=== PATIENT | male | born 1965 | race Hispanic/Latino ===

== ENCOUNTER 2018-10-17 02:30 | Observation (INO) | payer MEDICARE, SELFPAY ==
[2018-10-17 02:31] VITALS: BMI 30.4
--- NOTE | 2018-10-17 02:52 | ED PDOC ---
Arrival/HPI - General Chief Complaint: GI Problem Time Seen by Provider: 10/17/18 02:31 Historian: Patient, Spouse - History of Present Illness Narrative History of Present Illness (Text): 10/17/18 02:45 Pt is a 53 yo male with a PMH of DM, HTN, HLD, GERD who presents to the ED complaining of nausea and vomiting. Pt states he woke up at 1:15am and felt nausea and dizzy/room was spinning. Pt reports 5 episodes of NBNB vomiting. 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 Pt denies sick contacts, missing any medication doses, or diarrhea. Time/Duration: 1-3 hours Symptom Course: Worsening Quality: Aching Severity Level: 5 Activities at Onset: Rest Context: Sitting Past Medical History - Infectious Disease Hx of Infectious Diseases: None - Cardiac Hx Hypertension: Yes - Pulmonary Hx Respiratory Disorders: No - Neurological Hx Neurological Disorder: No - Endocrine/Metabolic Hx Diabetes Mellitus Type 2: Yes - Hematological/Oncological Hx Blood Disorders: No - Integumentary Hx Dermatological Disorder: No - Musculoskeletal/Rheumatological Hx Musculoskeletal Disorders: No - Gastrointestinal Hx Gastrointestinal Disorders: No - Genitourinary/Gynecological Hx Genitourinary Disorders: No - Psychiatric Hx Depression: No Hx Emotional Abuse: No Hx Physical Abuse: No Hx Substance Use: No - Anesthesia Hx Anesthesia: No - Suicidal Assessment Feels Threatened In Home Enviroment: No Family/Social History Family/Social History: Diabetes Smoking Status: Never Smoked Hx Alcohol Use: No Hx Substance Use: No Allergies/Home Meds Allergies/Adverse Reactions: Allergies No Known Allergies Allergy (Verified 10/17/18 02:30) Home Medications: Home Meds Medication Instructions Recorded Confirmed Aspirin [Lo-Dose Aspirin EC] 1 tab PO DAILY 10/17/18 10/17/18 Empagliflozin [Jardiance] 10 mg PO DAILY 10/17/18 10/17/18 Glipizide [Glucotrol] 10 mg PO DAILY 10/17/18 10/17/18 Losartan Potassium 50 mg PO DAILY 10/17/18 10/17/18 Lovastatin 40 mg PO DAILY 10/17/18 10/17/18 MetFORMIN [glucoPHAGE] 1,000 mg PO BID 10/17/18 10/17/18 Review of Systems - Review of Systems Constitutional: Night Sweats Eyes: Vision Changes ENT: Normal Respiratory: Normal Cardiovascular: Normal Gastrointestinal: Abdominal Pain, Nausea, Vomiting. absent: Diarrhea Musculoskeletal: Normal Skin: Normal Neurological: Dizziness. absent: Focal Weakness, Gait Changes, Seizure Endocrine: Diaphoresis Hemo/Lymphatic: Normal Psychiatric: Normal Physical Exam Vital Signs Reviewed: Yes Vital Signs Temp Pulse Resp BP Pulse Ox 10/17/18 02:36 97.7 F 77 18 140/95 H 99 Temperature: Afebrile Blood Pressure: Normal Pulse: Regular Respiratory Rate: Normal Appearance: Positive for: Well-Appearing Mental Status: Positive for: Alert and Oriented X 3 Finger Stick Blood Glucose: 320 - Systems Exam Head: Present: Atraumatic, Normocephalic Pupils: Present: PERRL, Other (lateral nystagmus) Extroacular Muscles: Present: EOMI Conjunctiva: Present: Normal Mouth: Present: Moist Mucous Membranes Pharnyx: Present: Normal Respiratory/Chest: Present: Clear to Auscultation, Good Air Exchange. No: Respiratory Distress, Accessory Muscle Use Cardiovascular: Present: Regular Rate and Rhythm, Normal S1, S2 Abdomen: No: Tenderness Upper Extremity: Present: Normal Inspection Lower Extremity: Present: Normal Inspection Neurological: Present: GCS=15, CN II-XII Intact Skin: Present: Warm, Dry, Rashes Psychiatric: Present: Alert, Oriented x 3 Medical Decision Making ED Course and Treatment: 10/17/18 03:05 vertigo CBC CMP finger stick 380, give 6 units regular insulin IV, recheck blood sugar in 1 hour EKG HR81, RRR, no signs of ST or T wave abnormalities mariangel michael [id number] 10/17/18 04:19 BS196 10/17/18 04:45 CT head spoke with Dr Conner, accepts pt to his service Pt seen, examined, assessment and plan discussed with Dr Twan Aburto PGY1 Disposition/Present on Arrival - Present on Arrival Any Indicators Present on Arrival: No History of DVT/PE: No History of Uncontrolled Diabetes: No Urinary Catheter: No History of Decub. Ulcer: No History Surgical Site Infection Following: None - Disposition Have Diagnosis and Disposition been Completed?: Yes Diagnosis: Vertigo Disposition: HOSPITALIZED Disposition Time: 04:47 Patient Plan: Admission Condition: FAIR Forms: [employer] (B[place]udian)
[2018-10-17] MEDS ORDERED: Insulin Regular 1 UNITS/0.01 ML ML IV STA (02:56)
[2018-10-17] MEDS ORDERED: Sodium Chloride 0.9% 1,000 ML IV SCH (03:00)
[2018-10-17 03:20] LABS: BASO # 0.01 K/mm3 (0.0-2.0); BASO % 0.2 % (0.0-3.0); EOS # 0.1 (0.0-0.7); EOS % 1.6 % (1.5-5.0); HEMOGLOBIN 14.9 g/dL (14.0-18.0); LYMPH # 2.4 (1.2-3.4); MEAN CELL VOLUME 85.4 fl (80.0-105.0); MEAN CORPUSCULAR HEMOGLOBIN 28.3 pg (25.0-35.0); MEAN CORPUSCULAR HGB CONC 33.2 g/dl (31.0-37.0); MEAN PLATELET VOLUME 12.7 fl (7.0-11.0); MONO # 0.3 (0.1-0.6); MONO % 4.8 % (1.0-6.0); RBC 5.26 10^6/uL (3.5-6.1); RED CELL DISTRIBUTION WIDTH 13.2 % (11.5-14.5); WHITE BLOOD COUNT 6.4 10^3/uL (4.5-11.0)
[2018-10-17 03:35] LABS: ALB/GLOB RATIO 1.6 (1.1-1.8); ALBUMIN 4.6 g/dL (3.0-4.8); ALT/SGPT 20 U/L (7-56); AST/SGOT 23 U/L (17-59); BLOOD UREA NITROGEN 21 mg/dL (7-21); CALCIUM 10.8 mg/dL (8.4-10.5); GFR NON-AFRICAN AMERICAN > 60
[2018-10-17] MEDS ORDERED: Insulin Reg-MEDIUM-Coverage SC SCH ×2 (08:27→11:30)
[2018-10-17] MEDS: Insulin Reg-MEDIUM-Coverage SC SCH ×4 (08:50→22:00)
[2018-10-17 08:52] LABS: EOS % 0.2 % (1.5-5.0); HEMOGLOBIN 14.4 g/dL (14.0-18.0); LYMPH # 0.9 (1.2-3.4); LYMPH % 17.2 % (22.0-35.0); MEAN CELL VOLUME 85.8 fl (80.0-105.0); MEAN CORPUSCULAR HEMOGLOBIN 28.1 pg (25.0-35.0); MEAN CORPUSCULAR HGB CONC 32.7 g/dl (31.0-37.0); MEAN PLATELET VOLUME 12.6 fl (7.0-11.0); MONO # 0.1 (0.1-0.6); MONO % 2.7 % (1.0-6.0); RBC 5.13 10^6/uL (3.5-6.1); RED CELL DISTRIBUTION WIDTH 13.2 % (11.5-14.5); WHITE BLOOD COUNT 5.2 10^3/uL (4.5-11.0)
--- NOTE | 2018-10-17 09:02 | CT ---
Date of service: 10/17/2018 PROCEDURE: CT HEAD WITHOUT CONTRAST. HISTORY: vertigo COMPARISON: None available. TECHNIQUE: Axial computed tomography images were obtained through the head/brain without intravenous contrast. Radiation dose: Total exam DLP = 959.33 mGy-cm. This CT exam was performed using one or more of the following dose reduction techniques: Automated exposure control, adjustment of the mA and/or kV according to patient size, and/or use of iterative reconstruction technique. FINDINGS: HEMORRHAGE: No intracranial hemorrhage. BRAIN: No mass effect or edema. No atrophy or chronic microvascular ischemic changes. VENTRICLES: Unremarkable. No hydrocephalus. CALVARIUM: Unremarkable. PARANASAL SINUSES: Unremarkable as visualized. No significant inflammatory changes. MASTOID AIR CELLS: Unremarkable as visualized. No inflammatory changes. OTHER FINDINGS: 4.6 centimeter left temporal benign simple and complicated arachnoid cyst. 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 IMPRESSION: No acute hemorrhage.
[2018-10-17 09:11] LABS: ALB/GLOB RATIO 1.4 (1.1-1.8); ALBUMIN 4.2 g/dL (3.0-4.8); ALT/SGPT 31 U/L (7-56); AST/SGOT 19 U/L (17-59); BLOOD UREA NITROGEN 21 mg/dL (7-21); CALCIUM 10.3 mg/dL (8.4-10.5); GFR NON-AFRICAN AMERICAN > 60; HDL CHOLESTEROL 49 mg/dL (29-60)
[2018-10-17 09:12] LABS: LDL CHOLESTEROL 93 mg/dL (0-129); TROPONIN I < 0.01 ng/mL
[2018-10-17 09:21] LABS: FREE T4 1.13 ng/dL (0.78-2.19)
--- NOTE | 2018-10-17 12:04 | CP.PCM.HP ---
<Jacob Suggs - Last Filed: 10/17/18 12:12> History of Present Illness - History of Present Illness History of Present Illness: Jacob Suggs D.O. PGY-3, Internal Medicine Resident, Dr. Conner's Service, H&P CC: Dizziness with nausea and vomiting for a few hours 53-year-old male with a past medical history of diabetes and hypertension who presents for complaints of dizziness associated with nausea and vomiting for a few hours. Patient states that he was sleeping and woke up feeling unwell so he went to the kitchen to get some orange juice. States that shortly after drinking the orange juice he had nonbloody nonbilious vomiting about 5 times. Patient states that he threw up everything including his dinner from a few hours previous. States that he did not eat anything out of the ordinary. His significant other ate something similar and did not get sick. Has never had any issues like this before in the past. Denies any sick contacts that he knows of. Denies flights or periods of immobility. Patient took his blood sugar during this episode and it was found to be 485. Patient states that he was going to try to use some insulin that he had been given by his primary medical doctor but he did not have any of the needles. Patient decided to present to the hospital for these complaints. At this time denies any fevers, chills, diarrhea, const ipation, lightheadedness, headache, weakness, hematuria, dysuria or any other worrisome complaints. Patient does not that he has a little bit of discomfort in the abdomen. PMH: As above PSH: Right eye surgery, left knee surgery SH: Denies smoking, social EtOH, denies drug use FH: Noncontributory Meds: Reviewed Allergies: No known allergies Present on Admission - Present on Admission Any Indicators Present on Admission: No Review of Systems - Review of Systems All systems: reviewed and no additional remarkable complaints except (as per HPI) Past Patient History - Infectious Disease Hx of Infectious Diseases: None - Past Social History Smoking Status: Never Smoked - CARDIAC Hx Hypertension: Yes - PULMONARY Hx Respiratory Disorders: No - NEUROLOGICAL Hx Neurological Disorder: No - ENDOCRINE/METABOLIC Hx Diabetes Mellitus Type 2: Yes - HEMATOLOGICAL/ONCOLOGICAL Hx Blood Disorders: No - INTEGUMENTARY Hx Dermatological Problems: No - MUSCULOSKELETAL/RHEUMATOLOGICAL Hx Musculoskeletal Disorders: No - GASTROINTESTINAL Hx Gastrointestinal Disorders: No - GENITOURINARY/GYNECOLOGICAL Hx Genitourinary Disorders: No - PSYCHIATRIC Hx Depression: No Hx Emotional Abuse: No Hx Physical Abuse: No Hx Substance Use: No - SURGICAL HISTORY Hx Surgeries: No - ANESTHESIA Hx Anesthesia: No Meds Allergies/Adverse Reactions: Allergies Allergy/AdvReac Type Severity Reaction Status Date / Time No Known Allergies Allergy Verified 10/17/18 02:30 Physical Exam - Constitutional Appears: Non-toxic, No Acute Distress - Head Exam Head Exam: ATRAUMATIC, NORMOCEPHALIC - Eye Exam Eye Exam: EOMI. absent: Scleral icterus Additional comments: slight right ptosis, chronic per patient s/p surgery for lazy eye - ENT Exam ENT Exam: Mucous Membranes Moist, Normal Oropharynx - Neck Exam Neck exam: Positive for: Normal Inspection - Respiratory Exam Respiratory Exam: Clear to Auscultation Bilateral. absent: Rales, Rhonchi, Wheezes - Cardiovascular Exam Cardiovascular Exam: RRR, +S1, +S2. absent: Gallop, Rubs - GI/Abdominal Exam GI & Abdominal Exam: Normal Bowel Sounds, Soft. absent: Distended, Tenderness (even on deep palpation) - Extremities Exam Extremities exam: Positive for: normal capillary refill, pedal pulses present. Negative for: calf tenderness, pedal edema, tenderness - Neurological Exam Neurological exam: Alert, Oriented x3 Additional comments: REFUSED GLENDY-HALLPIKE TEST, states too dizzy at the moment and on re-examination later in the day - Psychiatric Exam Psychiatric exam: Normal Affect, Normal Mood - Skin Skin Exam: Dry, Warm Results - Vital Signs Recent Vital Signs: Last Vital Signs Temp 97.7 F 10/17/18 02:36 Pulse 67 10/17/18 09:40 Resp 16 10/17/18 05:13 BP 120/71 10/17/18 09:40 Pulse Ox 95 10/17/18 05:13 - Labs Result Diagrams: 10/17/18 08:43 10/17/18 08:43 Labs: Laboratory Results - last 24 hr 10/17/18 10/17/18 10/17/18 02:33 02:38 02:38 WBC 6.4 RBC 5.26 Hgb 14.9 Hct 44.9 MCV 85.4 MCH 28.3 MCHC 33.2 RDW 13.2 Plt Count 149 MPV 12.7 H Neut % (Auto) 55.4 Lymph % (Auto) 38.0 H Pender % (Auto) 4.8 Eos % (Auto) 1.6 Baso % (Auto) 0.2 Lymph # (Auto) 2.4 Pender # (Auto) 0.3 Eos # (Auto) 0.1 Baso # (Auto) 0.01 Absolute Neuts (auto) 3.55 Sodium 141 Potassium 3.7 Chloride 105 Carbon Dioxide 25 Anion Gap 15 BUN 21 Creatinine 0.8 Est GFR ( Amer) > 60 Est GFR (Non-Af Amer) > 60 POC Glucose (mg/dL) 320 H Random Glucose 337 H* Calcium 10.8 H Phosphorus Magnesium Total Bilirubin 0.3 AST 23 ALT 20 Alkaline Phosphatase 146 H Troponin I Total Protein 7.5 Albumin 4.6 Globulin 2.9 Albumin/Globulin Ratio 1.6 Triglycerides Cholesterol LDL Cholesterol Direct HDL Cholesterol Free T4 TSH 3rd Generation 10/17/18 10/17/18 10/17/18 04:18 08:03 08:43 WBC 5.2 RBC 5.13 Hgb 14.4 Hct 44.0 MCV 85.8 MCH 28.1 MCHC 32.7 RDW 13.2 Plt Count 130 MPV 12.6 H Neut % (Auto) 79.9 H Lymph % (Auto) 17.2 L Pender % (Auto) 2.7 Eos % (Auto) 0.2 L Baso % (Auto) 0.0 Lymph # (Auto) 0.9 L Pender # (Auto) 0.1 Eos # (Auto) 0.0 Baso # (Auto) 0.00 Absolute Neuts (auto) 4.13 Sodium Potassium Chloride Carbon Dioxide Anion Gap BUN Creatinine Est GFR ( Amer) Est GFR (Non-Af Amer) POC Glucose (mg/dL) 196 H 221 H Random Glucose Calcium Phosphorus Magnesium Total Bilirubin AST ALT Alkaline Phosphatase Troponin I Total Protein Albumin Globulin Albumin/Globulin Ratio Triglycerides Cholesterol LDL Cholesterol Direct HDL Cholesterol Free T4 TSH 3rd Generation 10/17/18 10/17/18 08:43 08:43 WBC RBC Hgb Hct MCV MCH MCHC RDW Plt Count MPV Neut % (Auto) Lymph % (Auto) Pender % (Auto) Eos % (Auto) Baso % (Auto) Lymph # (Auto) Pender # (Auto) Eos # (Auto) Baso # (Auto) Absolute Neuts (auto) Sodium 142 Potassium 4.5 Chloride 106 Carbon Dioxide 26 Anion Gap 14 BUN 21 Creatinine 0.7 L Est GFR ( Amer) > 60 Est GFR (Non-Af Amer) > 60 POC Glucose (mg/dL) Random Glucose 249 H Calcium 10.3 Phosphorus 3.3 Magnesium 2.0 Total Bilirubin 0.4 AST 19 ALT 31 Alkaline Phosphatase 127 H Troponin I < 0.01 Total Protein 7.1 Albumin 4.2 Globulin 2.9 Albumin/Globulin Ratio 1.4 Triglycerides 61 Cholesterol 152 LDL Cholesterol Direct 93 HDL Cholesterol 49 Free T4 1.13 TSH 3rd Generation 1.24 Assessment & Plan - Assessment and Plan (Free Text) Assessment: 53-year-old male with a past medical history of diabetes and hypertension who pr esents for complaints of dizziness associated with nausea and vomiting for a few hours. Plan: 1. Dizziness with associated nausea or vomiting 2. Diabetes mellitus 3. Hypertension Etiology of his vertigo is unclear. We will obtain a neurology consult. Will start PRN meclizine. For his nausea he has had improvements with just isopropyl alcohol aromatherapy. Given that he is diabetic and could have an atypical presentation of chest pain we will obtain troponins and obtain a cardio consult. We will continue his home metformin, glipizide, Jardiance. We will also place the patient on a regular insulin sliding scale with Accu-Cheks before meals at bedtime. We will place the patient on a heart healthy moderate consistent carb diet. We will continue his losartan for his hypertension. We will check his hemoglobin A1c for his diabetes to see if he is well controlled on his regimen given the high readings in the 400s. Head CT revealed no acute bleeding but does have an arachnoid cyst in the left temporal region that is likely chronic. We will follow the patient closely. Patient was seen and examined and case was discussed with attending physician. - Date & Time Date: 10/17/18 Time: 07:00 <Devan Conner - Last Filed: 10/17/18 13:01> Results - Vital Signs Recent Vital Signs: Last Vital Signs Temp 97.7 F 10/17/18 02:36 Pulse 67 10/17/18 09:40 Resp 16 10/17/18 05:13 BP 120/71 10/17/18 09:40 Pulse Ox 95 10/17/18 05:13 - Labs Result Diagrams: 10/17/18 08:43 10/17/18 08:43 Labs: Laboratory Results - last 24 hr 10/17/18 10/17/18 10/17/18 02:33 02:38 02:38 WBC 6.4 RBC 5.26 Hgb 14.9 Hct 44.9 MCV 85.4 MCH 28.3 MCHC 33.2 RDW 13.2 Plt Count 149 MPV 12.7 H Neut % (Auto) 55.4 Lymph % (Auto) 38.0 H Pender % (Auto) 4.8 Eos % (Auto) 1.6 Baso % (Auto) 0.2 Lymph # (Auto) 2.4 Pender # (Auto) 0.3 Eos # (Auto) 0.1 Baso # (Auto) 0.01 Absolute Neuts (auto) 3.55 Sodium 141 Potassium 3.7 Chloride 105 Carbon Dioxide 25 Anion Gap 15 BUN 21 Creatinine 0.8 Est GFR ( Amer) > 60 Est GFR (Non-Af Amer) > 60 POC Glucose (mg/dL) 320 H Random Glucose 337 H* Calcium 10.8 H Phosphorus Magnesium Total Bilirubin 0.3 AST 23 ALT 20 Alkaline Phosphatase 146 H Troponin I Total Protein 7.5 Albumin 4.6 Globulin 2.9 Albumin/Globulin Ratio 1.6 Triglycerides Cholesterol LDL Cholesterol Direct HDL Cholesterol Amylase Lipase Free T4 TSH 3rd Generation 10/17/18 10/17/18 10/17/18 04:18 08:03 08:43 WBC 5.2 RBC 5.13 Hgb 14.4 Hct 44.0 MCV 85.8 MCH 28.1 MCHC 32.7 RDW 13.2 Plt Count 130 MPV 12.6 H Neut % (Auto) 79.9 H Lymph % (Auto) 17.2 L Pender % (Auto) 2.7 Eos % (Auto) 0.2 L Baso % (Auto) 0.0 Lymph # (Auto) 0.9 L Pender # (Auto) 0.1 Eos # (Auto) 0.0 Baso # (Auto) 0.00 Absolute Neuts (auto) 4.13 Sodium Potassium Chloride Carbon Dioxide Anion Gap BUN Creatinine Est GFR ( Amer) Est GFR (Non-Af Amer) POC Glucose (mg/dL) 196 H 221 H Random Glucose Calcium Phosphorus Magnesium Total Bilirubin AST ALT Alkaline Phosphatase Troponin I Total Protein Albumin Globulin Albumin/Globulin Ratio Triglycerides Cholesterol LDL Cholesterol Direct HDL Cholesterol Amylase Lipase Free T4 TSH 3rd Generation 10/17/18 10/17/18 10/17/18 08:43 08:43 12:19 WBC RBC Hgb Hct MCV MCH MCHC RDW Plt Count MPV Neut % (Auto) Lymph % (Auto) Pender % (Auto) Eos % (Auto) Baso % (Auto) Lymph # (Auto) Pender # (Auto) Eos # (Auto) Baso # (Auto) Absolute Neuts (auto) Sodium 142 Potassium 4.5 Chloride 106 Carbon Dioxide 26 Anion Gap 14 BUN 21 Creatinine 0.7 L Est GFR ( Amer) > 60 Est GFR (Non-Af Amer) > 60 POC Glucose (mg/dL) 181 H Random Glucose 249 H Calcium 10.3 Phosphorus 3.3 Magnesium 2.0 Total Bilirubin 0.4 AST 19 ALT 31 Alkaline Phosphatase 127 H Troponin I < 0.01 Total Protein 7.1 Albumin 4.2 Globulin 2.9 Albumin/Globulin Ratio 1.4 Triglycerides 61 Cholesterol 152 LDL Cholesterol Direct 93 HDL Cholesterol 49 Amylase Lipase Free T4 1.13 TSH 3rd Generation 1.24 10/17/18 12:43 WBC RBC Hgb Hct MCV MCH MCHC RDW Plt Count MPV Neut % (Auto) Lymph % (Auto) Pender % (Auto) Eos % (Auto) Baso % (Auto) Lymph # (Auto) Pender # (Auto) Eos # (Auto) Baso # (Auto) Absolute Neuts (auto) Sodium Potassium Chloride Carbon Dioxide Anion Gap BUN Creatinine Est GFR ( Amer) Est GFR (Non-Af Amer) POC Glucose (mg/dL) Random Glucose Calcium Phosphorus Magnesium Total Bilirubin AST ALT Alkaline Phosphatase Troponin I Total Protein Albumin Globulin Albumin/Globulin Ratio Triglycerides Cholesterol LDL Cholesterol Direct HDL Cholesterol Amylase 114 Lipase 74 Free T4 TSH 3rd Generation Assessment & Plan - Assessment and Plan (Free Text) Plan: Pt seen and examined by me. I have reviewed the note of the biomedical engineering technician and I agree with it. I have discussed the assessment and plan with the resident. I have reviewed the medications and the last labs.
[2018-10-17 12:50] LABS: AMYLASE 114 U/L (35-125); LIPASE 74 U/L (23-300)
--- NOTE | 2018-10-17 15:08 | HP ---
DATE OF EXAM: 10/17/2018 HISTORY OF PRESENT ILLNESS: The patient was seen and examined. I do agree with the note of the medical accounts receivable specialist. I was involved in the plan of care. The patient came in to the hospital with dizziness, nausea and vomiting. He does have a history of diabetes and hypertension, his sugars have been uncontrolled. He is drinking orange juice to help with his symptoms, but without relief. The patient says that he never had these symptoms before, this is the first time he started having these symptoms and this is mostly yesterday. He was found to have a sugar that was significantly elevated in the 400s. He was not able to use the insulin, because he ran out of the needles. The patient says that he is feeling better, he does not have the nausea or vomiting. His dizziness is better, but he did try to go to the bathroom earlier and did have recurrence of his symptoms. The patient is going to be seen by Neurology. I will place the patient on meclizine as needed. He also had a CT of the chest done CT of the head that showed no acute abnormalities. There was a 4.6 cm left temporal benign the arachnoid cyst. There was mild chronic hypoplasia of the adjacent left temporal lobe. I did speak to the patient's at the bedside, who was able to tell me the patient's history and also I gave her update on the patient's plan of care. The patient is currently on aspirin daily, he is on metformin for his diabetes as well as Glucotrol, he will continue on that. The patient had troponin that was negative on admission and amylase and lipase were negative. Devan Conner MD
--- NOTE | 2018-10-17 16:54 | CON ---
DATE: 10/17/2018 NEUROLOGY CONSULT CHIEF COMPLAINT: Dizziness and nausea. HISTORY OF PRESENT ILLNESS: This is a 53-year-old man with history of type 2 diabetes mellitus, hypertension, who presented with complaints of dizziness and nausea over the past few hours. The patient states that he was sleeping, he woke up and felt unwell, and he went to kitchen to get some orange juice, he felt lightheaded and had spinning sensation of the room as well as had nonbilious vomiting x5 and took his blood sugar and found to have a blood sugar of 485. Currently, he came in for further evaluation. CAT scan of the head showed no acute intracranial abnormality. He had elevated blood sugars and has a hemoglobin A1c of 12.4, which shows poorly controlled diabetes. His initial blood sugar when he came was 337, elevated. Currently, he mentioned that the dizziness is much better in terms of spinning sensation of the room. No focal weakness seen on extremities. He had some mild neuropathy seen in neuro exam. PAST MEDICAL HISTORY: As above. SOCIAL HISTORY: No illicit drug use, smoking or EtOH abuse. REVIEW OF SYSTEMS: A 14-point review of systems is as per HPI. ALLERGIES: NO KNOWN DRUG ALLERGIES. MEDICATIONS: Reviewed by nurses' reconciliation sheet. FAMILY HISTORY: Noncontributory. LABORATORY DATA: Sodium is 142, potassium is 4.5, chloride 106, carbon dioxide 26, BUN of 21, creatinine 0.7, random glucose 249, and A1c is 12.4. PHYSICAL EXAMINATION: GENERAL: The patient is sitting up in bed, in no acute distress. VITAL SIGNS: Temperature is 98.2, pulse rate is 73, blood pressure 147/90, respiratory rate 19, oxygen saturation 95% on room air. HEENT: Atraumatic, normocephalic. PERRLA. Extraocular muscles intact. NECK: Supple. No JVD. No adenopathy noted. LUNGS: Clear to auscultation. No adventitious sounds. HEART: S1 and S2, normal rate and rhythm. No murmurs, rubs or gallops. ABDOMEN: Soft, nontender and nondistended. Bowel sounds present. EXTREMITIES: No clubbing. No cyanosis. Peripheral pulses are 2+ felt bilaterally. NEUROLOGIC: The patient is alert and oriented to person, place, month and year. Speech is fluent without any errors. Cranial nerves II through XII are intact. Motor: Moves all extremities equally. No pronator drift seen. Sensory: Decreased light touch and pinprick up to the calves bilaterally. Decreased vibration at the toes. DTRs are 2+ throughout and toes are downgoing bilaterally. Coordination: [id number] is intact. No dysmetria noted. Gait is deferred for now. IMPRESSION: This is a 53-year-old man with history of type 2 diabetes mellitus, hypertension, who presented with complaints of dizziness, spinning sensation of the room, associated with nausea and vomiting, which is likely secondary to positional vertigo, superimposed underlying hyperglycemia and with uncontrolled diabetes given that his A1c is 12.4. RECOMMENDATIONS: At this time, we would recommend: 1. Keep blood sugars in the 140-180 and diabetic diet and education needs to be given. 2. Aspirin 81 mg for stroke prevention in addition to Lipitor 40 mg p.o. daily for dyslipidemia. 3. Meclizine 25 mg p.o. every 6 hours for underlying vertigo. 4. Outpatient vestibular therapy for vertigo. 5. MRI of the brain to assess for any structural abnormalities causing acute symptoms and continue with current and present medical management. Thank you for this consult. Dong Christianson MD
--- NOTE | 2018-10-17 17:38 | MRI ---
Date of service: 2018-10-17 15:27:38 PROCEDURE: MRI BRAIN WITHOUT CONTRAST HISTORY: Vertigo. COMPARISON: Comparison made with CT scan vein earlier same day TECHNIQUE: Multiplanar, multisequence MR images of the brain were obtained without intravenous contrast enhancement. FINDINGS: HEMORRHAGE: No acute parenchymal, subarachnoid or extra-axial hemorrhage. No evidence hemosiderin deposition identified on gradient echo weighted sequence. DWI: No evidence of an acute or early subacute infarction seen on diffusion imaging.. BRAIN PARENCHYMA: Redemonstrated is a relatively large arachnoid cyst left middle cranial fossa. The cyst results in minor compressive effects on the anterior aspect of the left temporal lobe which is displaced posteriorly. Note however that the there may also be a component of hypoplasia left temporal lobe Mild generalized volume loss VENTRICLES: No obstructive hydrocephalus. CRANIUM: Unremarkable. ORBITS: Orbits and contents grossly unremarkable. PARANASAL SINUSES/MASTOIDS: Clear VASCULAR SYSTEM: Visualized major vascular flow voids at skull base patent. OTHER FINDINGS: None. IMPRESSION: Redemonstrated is a relatively large left middle cranial fossa arachnoid cyst.. The cyst does result in minor compressive effects on the anterior margin of the left temporal lobe which is slightly displaced posteriorly however note that the possibility of an element of mild hypoplasia left temporal lobe may be present as well. No evidence of acute intracranial hemorrhage or infarction. Mild generalized volume loss.
[2018-10-17 17:41] VITALS: RESP 18
--- NOTE | 2018-10-17 17:59 | CP.PCM.PCO ---
Physician Communication Note - Physician Communication Note Physician Communication Note: mri brain reveiwed, no acute abnormalities. c/w vestibular therapy outpt.
--- NOTE | 2018-10-17 18:22 | CARD ---
APPROVED REPORT Date of service: 10/17/2018 EKG Measurement Heart [id number] MD [id number] <Conclusion> Normal sinus rhythm Septal infarct, age undetermined Abnormal ECG
--- NOTE | 2018-10-17 21:17 | CON ---
DATE: 10/17/2018 CONSULT SERVICE: Cardiology. REASON FOR CONSULTATION: Cardiac evaluation, admitted with dizziness. BRIEF CLINICAL HISTORY: This is a 53-year-old male with past medical history significant for diabetes, hypertension, hyperlipidemia, morbid obesity used to be 480 pounds, cut down to weight 280 over the period of 3 years, who admitted here with dizziness. The patient states that he got up, took it orange juice, and feel everything is spinning around. Denies any chest pain. Denies any shortness of breath. Denies any palpitations. PAST MEDICAL HISTORY: Significant for diabetes, hypertension, hyperlipidemia, morbid obesity 480 pounds used to be 3 years ago, he cut down the weight taking small portion of food to 280 pounds, now is around 285. CURRENT MEDICATIONS: The patient is taking at home losartan 50 mg, lovastatin 40 mg, glipizide 10 mg, aspirin, metformin 1 g twice a day, and Jardiance 10 mg daily. REVIEW OF SYSTEMS: As per HPI. ALLERGIES: NO KNOWN DRUG ALLERGIES. PAST SURGICAL HISTORY: Significant for left knee surgery and right eye surgery. SOCIAL HISTORY: Denies any smoking. Denies any history of alcohol abuse. PHYSICAL EXAMINATION: GENERAL: Height of the patient 6 feet 4 inches, weight of the patient 285 pounds, and body mass index 34 kg/m2. VITAL SIGNS: Temperature afebrile, heart rate , and blood pressure 132/80. HEENT: PERRLA. Extraocular muscles intact. NECK: Supple. No carotid bruits. No thyromegaly. CHEST: Clear to auscultation. HEART: S1 and S2 regular. ABDOMEN: Soft. EXTREMITIES: Clubbing and cyanosis negative. LABORATORY DATA: Blood workup as follows: WBC 5.8, hemoglobin , hematocrit 44, and platelet count 130. Chemistry shows sodium 140, potassium 4.5, chloride 106, CO2 of 26, anion gap of 14, BUN 21, and creatinine 0.4. EKG showed normal sinus, poor R-wave progression, and no acute ST-T changes noted. IMPRESSION: A 53-year-old male with past medical history significant for morbid obesity, recently reduced weight from 480 to 250 over the period of 3 years, admitted with dizziness. History of diabetes, hypertension, hyperlipidemia, multiple risk factors of coronary artery disease, but no evidence of ischemia noted. RECOMMENDATIONS: Echo to assess LV function. We will get TSH, lipid profile, and hemoglobin A1c. Further recommendation depending upon the hospital course. Continue neuro workup. We will follow with you. Thank you Dr. Conner for providing us the opportunity in taking care of the patient, Wilfrid Chavez. Ross Kunz MD
[2018-10-18 05:48] VITALS: BP 122/67; PULSE 62; TEMP 97.6; O2SAT 97
[2018-10-18] MEDS: Insulin Reg-MEDIUM-Coverage SC SCH (07:58)
--- NOTE | 2018-10-18 08:50 | CP.PCM.PN ---
Subjective - Date & Time of Evaluation Date of Evaluation: 10/18/18 Time of Evaluation: 06:48 - Subjective Subjective: Awake, no distress Reason for consultation and follow up: Cardiac evaluation of dizziness, history of diabetes and hypertension Seen and examined by me and Dr. Kunz Objective - Vital Signs/Intake and Output Vital Signs (last 24 hours): Temp Pulse Resp BP Pulse Ox 97.6 F 62 18 122/67 97 10/18/18 05:30 10/18/18 05:30 10/18/18 05:30 10/18/18 05:30 10/18/18 05:30 Intake and Output: 10/18/18 10/18/18 06:59 18:59 Intake Total 240 Balance 240 - Medications Medications: Current Medications Aspirin (Ecotrin) 81 mg PO DAILY [facility] Last Admin: 10/17/18 09:40 Dose: 81 mg Glipizide (Glucotrol) 10 mg PO DAILY [facility] Last Admin: 10/17/18 09:40 Dose: 10 mg Insulin Human Regular (Humulin R Med) 0 units SC [facility]; Protocol Last Admin: 10/18/18 07:58 Dose: 1 u Losartan Potassium (Cozaar) 50 mg PO DAILY [facility] Last Admin: 10/17/18 09:40 Dose: 50 mg Meclizine HCl (Antivert) 25 mg PO Q6 PRN PRN Reason: Dizziness Metformin HCl (Glucophage) 1,000 mg PO BID [facility] Last Admin: 10/17/18 17:38 Dose: 1,000 mg Non-Formulary Medication (Empagliflozin [Jardiance]) 10 mg PO DAILY [facility] Last Admin: 10/17/18 09:41 Dose: Not Given - Labs Labs: 10/17/18 08:43 10/17/18 08:43 - Constitutional Appears: Non-toxic, No Acute Distress - Head Exam Head Exam: NORMAL INSPECTION, NORMOCEPHALIC - Eye Exam Eye Exam: Normal appearance Pupil Exam: NORMAL ACCOMODATION - ENT Exam ENT Exam: Mucous Membranes Moist, Normal Exam - Neck Exam Neck Exam: Full ROM, Normal Inspection - Respiratory Exam Respiratory Exam: Decreased Breath Sounds, Clear to Ausculation Bilateral, NORMAL BREATHING PATTERN - Cardiovascular Exam Cardiovascular Exam: REGULAR RHYTHM, +S1, +S2 - GI/Abdominal Exam GI & Abdominal Exam: Soft, Normal Bowel Sounds - Extremities Exam Extremities Exam: Full ROM, Normal Capillary Refill - Neurological Exam Neurological Exam: Alert, Awake, Oriented x3 - Psychiatric Exam Psychiatric exam: Normal Affect, Normal Mood - Skin Skin Exam: Dry, Normal Color, Warm Assessment and Plan - Assessment and Plan (Free Text) Assessment: A 53 year old obese male who came in to the ER due to dizziness associated with nausea and vomiting. He checked glucose was elevated 485 but unable to give self insulin. History of hypertension and diabetes, left eye surgery,left knee surgery. Troponin negative. EKG showed NSR, no ischemia. No previous cardiac work up done at [facility]. Echo done to evaluate LV function, results pending, will follow up. Control glucose. Due to risk, will schedule stress test as out pat ient. No evidence of acute myocardial infarction.Ruled out acute coronary syndrome. Uncontrolled diabetes. Will discontinue telemetry. Neuro on consult. Plan: No distress Heart rate stable Blood pressure stable Will follow up echo results Out patient stress test On ASA 81 mg daily,Cozaar 50 mg daily Continue current treatment Continue current medications Lifestyle modification Weight reduction Diabetes education Discontinue telemetry Will follow up Plan and treatment discussed with Dr. Kunz
--- NOTE | 2018-10-18 10:51 | CP.PCM.DIS ---
<SuggsJacob shaikh - Last Filed: 10/18/18 10:42> Provider - Provider Date of Admission: 10/17/18 04:56 Attending physician: Devan Conner MD Primary care physician: Crispin Shultz APN Consults: 10/17/18 08:33 Consult [Physician Consult] Routine Comment: Consulting Provider: Ross Kunz Consulting Physician: Ross Kunz Reason for Consult: dizziness 10/17/18 10:29 Neurology Consult Routine Comment: Consulting Provider: Dong Christianson Consulting Physician: Dong Christianson Reason for Consult: Vertigo Time Spent in preparation of Discharge (in minutes): 45 Diagnosis - Discharge Diagnosis (1) Uncontrolled diabetes mellitus Status: Acute (2) Vertigo Status: Acute Hospital Course - Lab Results Lab Results: Most Recent Lab Values WBC 5.2 10^3/uL (4.5-11.0) 10/17/18 08:43 RBC 5.13 10^6/uL (3.5-6.1) 10/17/18 08:43 Hgb 14.4 g/dL (14.0-18.0) 10/17/18 08:43 Hct 44.0 % (42.0-52.0) 10/17/18 08:43 MCV 85.8 fl (80.0-105.0) 10/17/18 08:43 MCH 28.1 pg (25.0-35.0) 10/17/18 08:43 MCHC 32.7 g/dl (31.0-37.0) 10/17/18 08:43 RDW 13.2 % (11.5-14.5) 10/17/18 08:43 Plt Count 130 10^3/uL (120.0-450.0) 10/17/18 08:43 MPV 12.6 fl (7.0-11.0) H 10/17/18 08:43 Neut % (Auto) 79.9 % (50.0-68.0) H 10/17/18 08:43 Lymph % (Auto) 17.2 % (22.0-35.0) L 10/17/18 08:43 [place] % (Auto) 2.7 % (1.0-6.0) 10/17/18 08:43 Eos % (Auto) 0.2 % (1.5-5.0) L 10/17/18 08:43 Baso % (Auto) 0.0 % (0.0-3.0) 10/17/18 08:43 Lymph # (Auto) 0.9 (1.2-3.4) L 10/17/18 08:43 [place] # (Auto) 0.1 (0.1-0.6) 10/17/18 08:43 Eos # (Auto) 0.0 (0.0-0.7) 10/17/18 08:43 Baso # (Auto) 0.00 K/mm3 (0.0-2.0) 10/17/18 08:43 Absolute Neuts (auto) 4.13 (1.4-6.5) 10/17/18 08:43 Sodium 142 mmol/L (132-148) 10/17/18 08:43 Potassium 4.5 mmol/L (3.6-5.0) 10/17/18 08:43 Chloride 106 mmol/L (98-107) 10/17/18 08:43 Carbon Dioxide 26 mmol/L (21-33) 10/17/18 08:43 Anion Gap 14 (10-20) 10/17/18 08:43 BUN 21 mg/dL (7-21) 10/17/18 08:43 Creatinine 0.7 mg/dl (0.8-1.5) L 10/17/18 08:43 Est GFR ( Amer) > 60 10/17/18 08:43 Est GFR (Non-Af Amer) > 60 10/17/18 08:43 POC Glucose (mg/dL) 159 mg/dL (65-110) H 10/18/18 07:06 Random Glucose 249 mg/dL (70-110) H 10/17/18 08:43 Hemoglobin A1c 12.4 % (4.2-6.5) H D 10/17/18 08:43 Calcium 10.3 mg/dL (8.4-10.5) 10/17/18 08:43 Phosphorus 3.3 mg/dL (2.5-4.5) 10/17/18 08:43 Magnesium 2.0 mg/dL (1.7-2.2) 10/17/18 08:43 Total Bilirubin 0.4 mg/dL (0.2-1.3) 10/17/18 08:43 AST 19 U/L (17-59) 10/17/18 08:43 ALT 31 U/L (7-56) 10/17/18 08:43 Alkaline Phosphatase 127 U/L (38-126) H 10/17/18 08:43 Troponin I < 0.01 ng/mL 10/17/18 08:43 Total Protein 7.1 g/dL (5.8-8.3) 10/17/18 08:43 Albumin 4.2 g/dL (3.0-4.8) 10/17/18 08:43 Globulin 2.9 gm/dL 10/17/18 08:43 Albumin/Globulin Ratio 1.4 (1.1-1.8) 10/17/18 08:43 Triglycerides 61 mg/dL (35-160) 10/17/18 08:43 Cholesterol 152 mg/dL (130-200) 10/17/18 08:43 LDL Cholesterol Direct 93 mg/dL (0-129) 10/17/18 08:43 HDL Cholesterol 49 mg/dL (29-60) 10/17/18 08:43 Amylase 114 U/L (35-125) 10/17/18 12:43 Lipase 74 U/L (23-300) 10/17/18 12:43 Free T4 1.13 ng/dL (0.78-2.19) 10/17/18 08:43 TSH 3rd Generation 1.24 mIU/mL (0.46-4.68) 10/17/18 08:43 - Hospital Course Hospital Course: Jacob Suggs D.O. PGY-3, Internal Medicine Resident, Dr. Conner's Service, Discharge Summary 53-year-old male with a past medical history of diabetes and hypertension who presented for complaints of dizziness associated with nausea and vomiting for a few hours. Patient was evaluated by neurology. Patient had a CT of the head which showed no acute hemorrhage and only a arachnoid cyst which is chronic. Patient was seen and evaluated by neurology who recommended an MRI as suggested that his etiology was likely from blood sugar variations. 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 These findings were discussed with the patient's. Patient's had a lipid panel done which revealed normal cholesterol. Patient also had a hemoglobin A1c drawn which showed an A1c of 12.4%. Blood sugars varied during admission from 143-320 when he but were as high as 337 at admission. Patient was continued on his home medications of aspirin, losartan, metformin, glipizide, and Jardiance. Extensive discussion was had with the patient about the importance of lifestyle modifications and carb intake on his hemoglobin A1c. Patient was also seen and evaluated by cardiology and the recommendations were appreciated. Patient had a thyroid profile performed by cardiology which was shown to be normal. Patient also has an echocardiogram that was performed and is currently pending read. Patient will follow-up with cardiology as. Patient was seen and examined today this morning. Patient received alcohol aromatherapy for his nausea and states that it really helped him. Patient feels absolutely fine now. He understands that this was likely due to acute changes in his blood sugar levels. Patient will follow-up with his primary medical doctor within 1 week. Patient states that he will make lifestyle changes. All aforementioned information and plan was discussed with patient at length and he verbalized both understanding and agreement with the above. Patient was discharged in a stable condition to home. - Date & Time of H&P Date of H&P: 10/18/18 Time of H&P: 07:00 Discharge Exam - Head Exam Head Exam: NORMAL INSPECTION, NORMOCEPHALIC - Eye Exam Eye Exam: EOMI. absent: Scleral icterus Additional comments: slight right ptosis, chronic per patient - ENT Exam ENT Exam: Mucous Membranes Moist, Normal Oropharynx - Neck Exam Neck exam: Positive for: Normal Inspection - Respiratory Exam Respiratory Exam: Clear to Auscultation Bilateral. absent: Rales, Rhonchi, Wheezes - Cardiovascular Exam Cardiovascular Exam: RRR, +S1, +S2. absent: Gallop, Rubs - GI/Abdominal Exam GI & Abdominal Exam: Normal Bowel Sounds, Soft. absent: Distended, Tenderness - Extremities Exam Extremities exam: Positive for: normal capillary refill, pedal pulses present. Negative for: calf tenderness, pedal edema, tenderness - Neurological Exam Neurological exam: Alert, Oriented x3, nonfocal, intact - Psychiatric Exam Psychiatric exam: Normal Affect, Normal Mood - Skin Skin Exam: Dry, Warm Discharge Plan - Follow Up Plan Condition: FAIR Disposition: HOME/ ROUTINE Instructions: Vertigo (a Type of Dizziness) (DC), Diabetes Type 2 (DC), The ABCs of Diabetes, Treatment for Type 2 Diabetes, Sick Day Management for Diabetics, Heart Disease in Diabetics Additional Instructions: 1. Follow up with Dr. Shultz within 1 week. 2. Continue home medications. 3. Make lifestyle modifications as discussed. 4. Maintain hydration. Referrals: Crispin Shultz APN [Primary Care Provider] - <Devan Conner - Last Filed: 10/18/18 16:28> Provider - Provider Date of Admission: 10/17/18 04:56 Attending physician: Devan Conner MD Primary care physician: Crispin Shultz APN Consults: 10/17/18 08:33 Consult [Physician Consult] Routine Comment: Consulting Provider: Ross Kunz Consulting Physician: Ross Kunz Reason for Consult: dizziness 10/17/18 10:29 Neurology Consult Routine Comment: Consulting Provider: Dong Christianson Consulting Physician: Dong Christianson Reason for Consult: Vertigo Hospital Course - Lab Results Lab Results: Most Recent Lab Values WBC 5.2 10^3/uL (4.5-11.0) 10/17/18 08:43 RBC 5.13 10^6/uL (3.5-6.1) 10/17/18 08:43 Hgb 14.4 g/dL (14.0-18.0) 10/17/18 08:43 Hct 44.0 % (42.0-52.0) 10/17/18 08:43 MCV 85.8 fl (80.0-105.0) 10/17/18 08:43 MCH 28.1 pg (25.0-35.0) 10/17/18 08:43 MCHC 32.7 g/dl (31.0-37.0) 10/17/18 08:43 RDW 13.2 % (11.5-14.5) 10/17/18 08:43 Plt Count 130 10^3/uL (120.0-450.0) 10/17/18 08:43 MPV 12.6 fl (7.0-11.0) H 10/17/18 08:43 Neut % (Auto) 79.9 % (50.0-68.0) H 10/17/18 08:43 Lymph % (Auto) 17.2 % (22.0-35.0) L 10/17/18 08:43 [place] % (Auto) 2.7 % (1.0-6.0) 10/17/18 08:43 Eos % (Auto) 0.2 % (1.5-5.0) L 10/17/18 08:43 Baso % (Auto) 0.0 % (0.0-3.0) 10/17/18 08:43 Lymph # (Auto) 0.9 (1.2-3.4) L 10/17/18 08:43 [place] # (Auto) 0.1 (0.1-0.6) 10/17/18 08:43 Eos # (Auto) 0.0 (0.0-0.7) 10/17/18 08:43 Baso # (Auto) 0.00 K/mm3 (0.0-2.0) 10/17/18 08:43 Absolute Neuts (auto) 4.13 (1.4-6.5) 10/17/18 08:43 Sodium 142 mmol/L (132-148) 10/17/18 08:43 Potassium 4.5 mmol/L (3.6-5.0) 10/17/18 08:43 Chloride 106 mmol/L (98-107) 10/17/18 08:43 Carbon Dioxide 26 mmol/L (21-33) 10/17/18 08:43 Anion Gap 14 (10-20) 10/17/18 08:43 BUN 21 mg/dL (7-21) 10/17/18 08:43 Creatinine 0.7 mg/dl (0.8-1.5) L 10/17/18 08:43 Est GFR ( Amer) > 60 10/17/18 08:43 Est GFR (Non-Af Amer) > 60 10/17/18 08:43 POC Glucose (mg/dL) 159 mg/dL (65-110) H 10/18/18 07:06 Random Glucose 249 mg/dL (70-110) H 10/17/18 08:43 Hemoglobin A1c 12.4 % (4.2-6.5) H D 10/17/18 08:43 Calcium 10.3 mg/dL (8.4-10.5) 10/17/18 08:43 Phosphorus 3.3 mg/dL (2.5-4.5) 10/17/18 08:43 Magnesium 2.0 mg/dL (1.7-2.2) 10/17/18 08:43 Total Bilirubin 0.4 mg/dL (0.2-1.3) 10/17/18 08:43 AST 19 U/L (17-59) 10/17/18 08:43 ALT 31 U/L (7-56) 10/17/18 08:43 Alkaline Phosphatase 127 U/L (38-126) H 10/17/18 08:43 Troponin I < 0.01 ng/mL 10/17/18 08:43 Total Protein 7.1 g/dL (5.8-8.3) 10/17/18 08:43 Albumin 4.2 g/dL (3.0-4.8) 10/17/18 08:43 Globulin 2.9 gm/dL 10/17/18 08:43 Albumin/Globulin Ratio 1.4 (1.1-1.8) 10/17/18 08:43 Triglycerides 61 mg/dL (35-160) 10/17/18 08:43 Cholesterol 152 mg/dL (130-200) 10/17/18 08:43 LDL Cholesterol Direct 93 mg/dL (0-129) 10/17/18 08:43 HDL Cholesterol 49 mg/dL (29-60) 10/17/18 08:43 Amylase 114 U/L (35-125) 10/17/18 12:43 Lipase 74 U/L (23-300) 10/17/18 12:43 Free T4 1.13 ng/dL (0.78-2.19) 10/17/18 08:43 TSH 3rd Generation 1.24 mIU/mL (0.46-4.68) 10/17/18 08:43 - Hospital Course Hospital Course: Pt seen and examined by me. I have reviewed the note of the rn medical inpatient services and I agree with it. I have discussed the assessment and plan with the resident. I have reviewed the medications and the last labs.
--- NOTE | 2018-10-18 13:21 | CARD ---
APPROVED REPORT Date of service: 10/17/2018 EXAM: Two-dimensional and M-mode echocardiogram with Doppler and color Doppler. INDICATION Dizziness and Vertigo 2D DIMENSIONS Left Atrium (2D)4.1 (1.6-4.0cm)IVSd1.1 (0.7-1.1cm) LVDd4.2 (3.9-5.9cm)PWd1.1 (0.7-1.1cm) LVDs2.9 (2.5-4.0cm)FS (%) 31.3 % LVEF (%)59.5 (>50%) M-Mode DIMENSIONS Aortic Root3.80 (2.2-3.7cm)Aortic Cusp Exc.2.10 (1.5-2.0cm) Aortic Valve AoV Peak Pfparvrf817.0cm/Elijah Peak GR.7mmHg Mitral Valve MV E Xcfcqlxt86.0cm/sMV A Rftbcyrx03.7cm/sE/A ratio0.8 TDI Lateral E' Peak V9.85cm/sMedial E' Peak V7.70cm/sE/Lateral E'7.6 E/Medial E'9.7 Pulmonary Valve PV Peak Bajspzis70.9cm/sPV Peak Grad.3mmHg Tricuspid Valve TR Peak [id number]/sRAP [id number] Peak Gr.17mmHg [id number] LEFT VENTRICLE The left ventricle is normal size. There is normal left ventricular wall thickness. The left ventricular function is normal.EF-55-60% There is normal LV segmental wall motion. Transmitral Doppler flow pattern is Grade III-reversible restrictive diastolic dysfunction. No left ventricle thrombus noted on this study. There is no ventricular septal defect visualized. There is no left ventricular aneurysm. There is no mass noted in the left ventricle. RIGHT VENTRICLE The right ventricle is normal size. There is normal right ventricular wall thickness. The right ventricular systolic function is normal. ATRIA The left atrium is borderline dilated. The right atrium size is normal. The interatrial septum is intact with no evidence for an atrial septal defect. AORTIC VALVE The aortic valve is thickened but opens well. No aortic regurgitation is present. There is no aortic valvular stenosis. There is no aortic valvular vegetation. MITRAL VALVE The mitral valve is thickened but opens well. Mitral regurgitation is trace. There is no mitral valve stenosis. There is no evidence of mitral valve prolapse. TRICUSPID VALVE The tricuspid valve is normal in structure. There is trace to mild tricuspid regurgitation.RVSP-27 mmof hg. There is no tricuspid valve stenosis. There is no tricuspid valve prolapse or vegetation. PULMONIC VALVE The pulmonary valve is normal in structure. There is trace pulmonic valvular regurgitation. There is no pulmonic valvular stenosis. GREAT VESSELS The aortic root is normal in size. The ascending aorta is normal in size. The pulmonary artery is normal. The IVC is normal in size and collapses >50% with inspiration. PERICARDIAL EFFUSION There is no pleural effusion. There is no pericardial effusion. <Conclusion> The left ventricle is normal size. There is normal left ventricular wall thickness. The left ventricular function is normal.EF-55-60% Mitral regurgitation is trace. There is trace to mild tricuspid regurgitation.RVSP-27 mmof hg. The IVC is normal in size and collapses >50% with inspiration. There is no pericardial effusion. No vegetation or thrombus noted.
--- NOTE | 2018-10-18 21:03 | DS ---
HOSPITAL COURSE: The patient was seen and examined. I do agree with the note of the spanish medical interpreter. I was involved in the plan of care. The patient had uncontrolled diabetes when he was admitted to the hospital and was having dizziness. He was also having nausea and vomiting. The patient had improvement in his symptoms after his IV fluids were given and his sugars were better controlled. He had a CAT scan and MRI that were done that did show arachnoid an cyst, and the patient was seen by Neurology and cleared for discharge. No further management was going to be done. The patient was given a copy of his MRI to take to his primary care doctor. The patient had uncontrolled diabetes and had a hemoglobin A1c that was 12.4%. The patient is going to continue with metformin, glipizide, and Jardiance. He is on losartan for his hypertension. He is now currently comfortable. Devan Conner MD
== END 2018-10-18 10:36 | disposition home or self-care (01) ==
LOC: ED 02:30 → ERH 04:56 → 2RSO 06:43
PROVIDERS: ADMIT Internal Medicine Nephrology; ATTEND Internal Medicine Nephrology
DX: E11.65 Type 2 diabetes mellitus with hyperglycemia (principal); R42 Dizziness and giddiness; I10 Essential (primary) hypertension; E11.40 Type 2 diabetes mellitus with diabetic neuropathy, unspecified; E78.5 Hyperlipidemia, unspecified; G93.0 Cerebral cysts; K21.9 Gastro-esophageal reflux disease without esophagitis; E66.9 Obesity, unspecified; Z68.34 Body mass index [BMI] 34.0-34.9, adult
CPT/HCPCS: 36415; 70450; 70551; 80053; 80061; 82150; 82948; 83036; 83690; 83735; 84100; 84439; 84443; 84484; 85025; 93005; 93306; 96374; 96375; 96376; 99285; G0378; J2060; J2405; J7030